=== PATIENT | female | born 1950 | race Caucasian/White ===

== ENCOUNTER 2017-02-05 13:57 | Emergency (ER) | payer MEDICARE, OTHER ==
[~2017-02-05] VITALS: Ht 162.6 cm; Wt 54.5 kg
[~2017-02-05 13:57] MED LIST: PALI1.5T PO
[2017-02-05 14:26] LABS: GLUCOSE,POINT OF CARE 85 MG/DL (70-110)
[2017-02-05] MEDS ORDERED: DOCU250C91 PO (14:33)
[2017-02-05] MEDS ORDERED: CETI-260 PO (14:33)
[2017-02-05] MEDS ORDERED: ARIP10TA14 PO (14:33)
[2017-02-05] MEDS ORDERED: CLOZ25TA4 PO (14:33)
[2017-02-05 15:00] LABS: BASOPHILS # (AUTO) 0.05 K/uL (0.00-0.20); BASOPHILS % (AUTO) 0.8 % (0.0-2.0); EOSINOPHILS # (AUTO) 0.11 K/uL (0.00-0.70); EOSINOPHILS % (AUTO) 1.85 % (1.0-6.0); HEMATOCRIT 36.6 % (36-46); HEMOGLOBIN 12.1 g/dL (12.0-16.0); LYMPHOCYTES # (AUTO) 1.7 K/uL (1.0-4.8); LYMPHOCYTES % (AUTO) 28.5 % (22.0-44.0); MEAN CORPUSCULAR HEMOGLOBIN 31.1 pg (26.0-34.0); MEAN CORPUSCULAR VOLUME 94 fL (80-100); MONOCYTES # (AUTO) 0.3 K/uL (0.1-1.0); MONOCYTES % (AUTO) 5.2 % (2.0-9.0); NEUTROPHILS # (AUTO) 3.9 K/uL (1.8-7.7); NEUTROPHILS % (AUTO) 63.7 % (40.0-70.0); PLATELET COUNT (AUTO) 195 K/uL (150-450); RED BLOOD CELL COUNT(AUTO) 3.89 MIL/uL (4.00-5.20); RED CELL DISTRIBUTION WIDTH 13.8 % (11.5-14.5); WHITE BLOOD COUNT (AUTO) 6.1 K/uL (4.5-11.0)
[2017-02-05 15:28] LABS: ANION GAP 11 mmol/L (8-16); CALCIUM, TOTAL 9.4 mg/dL (8.8-10.5); CARBON DIOXIDE 28 mmol/L (22-29); CHLORIDE 105 mmol/L (98-107); CREATININE 0.69 mg/dL (0.60-1.30); GLOMERULAR FILTR. RATE CALC > 60 mL/min (>60); POTASSIUM 3.9 mmol/L (3.5-5.1); SODIUM SERUM 144 mmol/L (136-145); UREA NITROGEN, BLOOD 11 mg/dL (7-18)
[2017-02-05 15:36] LABS: ALANINE AMINOTRANSFERASE 19 U/L (12-78); ALBUMIN 3.8 g/dL (3.4-5.0); ASPARTATE AMINOTRANSFERASE 14 U/L (15-37); BILIRUBIN,TOTAL 0.4 mg/dL (0.1-1.0); TOTAL PROTEIN, SERUM 7.5 g/dL (6.4-8.2)
[2017-02-05 19:28] VITALS: BP 118/74
== END 2017-02-05 19:38 | disposition home or self-care (01) ==
LOC: EMS 13:58
DX: F20.9 Schizophrenia, unspecified (principal); F31.9 Bipolar disorder, unspecified
CPT/HCPCS: 36415; 80053; 80307; 82962; 85025; 99285; G0480

== ENCOUNTER 2021-01-31 14:54 | Inpatient (IN) | payer MEDICARE, MEDICAID ==
[~2021-01-31] VITALS: Ht 162.6 cm; Wt 71.2 kg
[~2021-01-31 14:54] MED LIST changes: +ARIP10TA38 PO; +CETI-450 PO; +CLOZ25TA5 PO; +DOCU250C91 PO; -PALI1.5T PO; +PALI1.5T7 PO
[2021-01-31] MEDS ORDERED: HALO100V4 IM (15:14)
[2021-01-31] MEDS ORDERED: ARIP400S3 IM (15:14)
[2021-01-31] MEDS ORDERED: LORazepam 2 MG TABLET PO PRN (16:45)
[2021-01-31] MEDS ORDERED: HALOPERIDOL 5 MG TABLET PO PRN (16:45)
[2021-01-31] MEDS ORDERED: ZOLPIDEM TARTRATE 10 MG TABLET PO PRN (16:45)
[2021-01-31 16:55] LABS: APPEARANCE,URINE CLEAR (CLEAR); BILIRUBIN,URINE NEGATIVE (NEGATIVE); GLUCOSE, URINE (UA) NEGATIVE (NEGATIVE); KETONES,URINE NEGATIVE (NEGATIVE); LEUKOCYTE ESTERASE ,URINE NEGATIVE (NEGATIVE); NITRATE,URINE NEGATIVE (NEGATIVE); OCCULT BLOOD,URINE SMALL (NEGATIVE); PH,URINE 6.5 (5.0-8.0); PROTEIN,URINE NEGATIVE (NEGATIVE); UROBILINOGEN,URINE 0.2 mg/dL (<=1.0)
[2021-01-31 17:00] LABS: AMPHET/METH SCREEN,URINE NEGATIVE (NEGATIVE); BARBITURATE SCREEN, URINE NEGATIVE (NEGATIVE); BENZODIAZEPINES SCREEN,URINE NEGATIVE (NEGATIVE); CANNABINOID SCREEN,URINE NEGATIVE (NEGATIVE); COCAINE SCREEN,URINE NEGATIVE (NEGATIVE); METHADONE SCREEN, URINE NEGATIVE (NEGATIVE); OPIATE SCREEN,URINE NEGATIVE (NEGATIVE); PHENCYCLIDINE SCREEN,URINE NEGATIVE (NEGATIVE)
[2021-01-31 17:09] LABS: BACTERIA,URINE None Seen /HPF (None Seen); RBC,URINE 0-2 /HPF (0-2); WBC,URINE 0-2 /HPF (0-5)
[2021-01-31 17:14] LABS: BASOPHILS % (AUTO) 0.7 % (0.0-2.0); EOSINOPHILS % (AUTO) 2.4 % (1.0-6.0); HEMATOCRIT 39.7 % (36-46); HEMOGLOBIN 13.2 g/dL (12.0-16.0); LYMPHOCYTES # (AUTO) 1.2 K/uL (1.0-4.8); LYMPHOCYTES % (AUTO) 20.6 % (22.0-44.0); MEAN CORPUSCULAR HEMOGLOBIN 30.5 pg (26.0-34.0); MEAN CORPUSCULAR HGB CONC 33.3 G/dL (31.0-37.0); MEAN CORPUSCULAR VOLUME 92 fL (80-100); MONOCYTES # (AUTO) 0.3 K/uL (0.1-1.0); MONOCYTES % (AUTO) 4.6 % (2.0-9.0); NEUTROPHILS # (AUTO) 4.2 K/uL (1.8-7.7); NEUTROPHILS % (AUTO) 71.7 % (40.0-70.0); PLATELET COUNT (AUTO) 224 K/uL (150-450); RED BLOOD CELL COUNT(AUTO) 4.33 MIL/uL (4.00-5.20); RED CELL DISTRIBUTION WIDTH 14.1 % (11.5-14.5)
[2021-01-31 17:27] LABS: ANION GAP 8 mmol/L (8-16); CALCIUM, TOTAL 9.1 mg/dL (8.8-10.5); CARBON DIOXIDE 29 mmol/L (22-29); CHLORIDE 104 mmol/L (98-107); CREATININE 0.93 mg/dL (0.60-1.30); GLOMERULAR FILTR. RATE CALC 59 mL/min (>60); GLUCOSE,RANDOM 98 mg/dL (70-110); POTASSIUM 4.1 mmol/L (3.5-5.1); SODIUM SERUM 141 mmol/L (136-145); UREA NITROGEN, BLOOD 13 mg/dL (7-18)
[2021-01-31 17:45] LABS: COVID AG,FIA SOURCE NASOPHARYNGEAL
[2021-01-31 17:46] LABS: ALANINE AMINOTRANSFERASE 21 U/L (12-78); ALBUMIN 3.8 g/dL (3.4-5.0); ALKALINE PHOSPHATASE 117 U/L (46-116); ASPARTATE AMINOTRANSFERASE 13 U/L (15-37); BILIRUBIN,TOTAL 0.3 mg/dL (0.1-1.0); TOTAL PROTEIN, SERUM 7.6 g/dL (6.4-8.2)
[2021-01-31 19:59] VITALS: BP 127/81
[2021-02-01 01:05] VITALS: BP 143/85
[2021-02-01 07:02] LABS: CHOL/HDL RATIO 4.3 (3.9-5.7); FREE T4 (FREE THYROXINE) 1.07 ng/dL (0.76-1.46); THYROID STIMULATING HORMONE 1.52 uIU/mL (0.36-3.74)
[2021-02-01 08:00] VITALS: BP 133/71
[2021-02-01] MEDS ORDERED: MAG HYDROX/AL HYDROX/SIMETH ES 30 ML SUSPENSION UDCUP PO PRN (08:00)
[2021-02-01] MEDS ORDERED: ALBUTEROL SULFATE HFA 90 MCG/PUFF 8 GM INHALER IH PRN (08:00)
[2021-02-01] MEDS ORDERED: DOCUSATE SODIUM 100 MG CAPSULE PO PRN (08:00)
[2021-02-01] MEDS ORDERED: PETROLATUM,WHITE 28 GM JELLY TP PRN (08:00)
[2021-02-01] MEDS ORDERED: CloNIDine HCL 0.1 MG TABLET PO PRN (08:00)
[2021-02-01] MEDS ORDERED: LOPERAMIDE HCL 2 MG CAPSULE PO PRN (08:00)
[2021-02-01] MEDS ORDERED: ONDANSETRON HCL 4 MG TABLET PO PRN (08:00)
[2021-02-01] MEDS ORDERED: MAGNESIUM HYDROXIDE SUSPENSION 30 ML UDCUP PO PRN (08:00)
[2021-02-01] MEDS ORDERED: IBUPROFEN 400 MG TABLET PO PRN (08:00)
[2021-02-01] MEDS ORDERED: GuaiFENesin/D-METHORPHAN [SUGAR-FREE] 200-20MG/10 ML SYRUP UDCUP PO PRN (08:00)
[2021-02-01] MEDS ORDERED: ACETAMINOPHEN 325 MG TABLET PO PRN (08:00)
[2021-02-01] MEDS ORDERED: NICOTINE 14 MG/24 HOUR PATCH TD PRN (08:00)
[2021-02-01] MEDS: ARIPiprazole 15 MG TABLET PO SCH (15:14)
[2021-02-01 16:03] VITALS: BP 108/70
[2021-02-02 08:00] VITALS: BP 134/84
[2021-02-02] MEDS: ARIPiprazole 15 MG TABLET PO SCH (08:12)
[2021-02-02 16:19] VITALS: BP 119/65
[2021-02-03 05:19] VITALS: BP 126/73
[2021-02-03 08:39] VITALS: BP 138/66
[2021-02-03] MEDS: ARIPiprazole 15 MG TABLET PO SCH (09:09)
[2021-02-03 16:15] VITALS: BP 122/81
[2021-02-04] MEDS: ARIPiprazole 15 MG TABLET PO SCH (08:21)
[2021-02-04 08:42] VITALS: BP 101/60
[2021-02-04 16:00] VITALS: BP 122/55
[2021-02-05 04:27] VITALS: BP 128/86
[2021-02-05 08:32] VITALS: BP 128/74
[2021-02-05] MEDS: ARIPiprazole 15 MG TABLET PO SCH (08:34)
[2021-02-05 16:00] VITALS: BP 100/58
[2021-02-06 02:35] VITALS: BP 138/73
[2021-02-06] MEDS: ARIPiprazole 15 MG TABLET PO SCH (09:01)
[2021-02-06 09:54] VITALS: BP 121/67
[2021-02-06] MEDS ORDERED: TUBERCULIN, PURIFIED PROTEIN DERIVATIVE 5 TU/0.1 ML SYRINGE ID ONE (15:00)
[2021-02-06 15:44] LABS: COVID AG,FIA SOURCE NASOPHARYNGEAL
[2021-02-06 16:00] VITALS: BP 101/68
[2021-02-07 02:33] VITALS: BP 136/82
[2021-02-07 08:00] VITALS: BP 111/76
[2021-02-07] MEDS: ARIPiprazole 15 MG TABLET PO SCH (09:23)
[2021-02-07 16:17] VITALS: BP 135/78
[2021-02-08 02:25] VITALS: BP 130/69
[2021-02-08 09:30] VITALS: BP 125/57
[2021-02-08 16:05] VITALS: BP 127/75
[2021-02-09 05:14] VITALS: BP 120/84
[2021-02-09 08:20] VITALS: BP 141/69
[2021-02-09 16:06] VITALS: BP 129/75
[2021-02-10 08:07] VITALS: BP 134/80
[2021-02-10 16:26] VITALS: BP 159/84
[2021-02-11 08:45] VITALS: BP 115/77
[2021-02-11 16:39] VITALS: BP 124/73
[2021-02-12 08:37] VITALS: BP 118/72
== END 2021-02-12 15:25 | disposition home or self-care (01) | DRG 885 ==
LOC: EMS 14:54 → 3EX 16:41
DX: F20.0 Paranoid schizophrenia (principal); B35.1 Tinea unguium; F31.9 Bipolar disorder, unspecified; G44.209 Tension-type headache, unspecified, not intractable; Z20.822 Contact with and (suspected) exposure to COVID-19
CPT/HCPCS: 80053; 80061; 81001; 84439; 84443; 85025; 87426; 99285; G0378; G0480